=== PATIENT | female | born 1965 | race Caucasian/White ===

== ENCOUNTER 2024-02-28 10:46 | Emergency (ER) | payer OTHER, SELFPAY ==
[2024-02-28 10:46] VITALS: BP 223/122; BP 227/110; PULSE 106; PULSE 108; RESP 18; TEMP 36.6; O2SAT 97; O2SAT 98; BMI 38.7
[2024-02-28 11:10] VITALS: BP 190/100
--- NOTE | 2024-02-28 11:11 | EKG12_ITS ---
Test Reason : Blood Pressure : */* mmHG Vent. Rate : 92 BPM Atrial Rate : 92 BPM P-R Int : 138 ms QRS Dur : 94 ms QT Int : 378 ms P-R-T Axes : 64 13 37 degrees QTcB Int : 467 ms Normal sinus rhythm Inferior infarct , age undetermined Abnormal ECG Confirmed by DALE RUBI, PIPER ([id number]), publication editor SABINO CRANE ([id number]) on 02/29/2024 1:50:14 PM Referred By: Confirmed By: PIPER HUNTER MD
--- NOTE | 2024-02-28 11:11 | EX.ED.DYSGE1 ---
HPI History of Present Illness Chief Complaint: Hypertension Informant: patient and spouse/S.O. Narrative Narrative: 59-year-old female presenting to the emergency room with a chief complaint of hypertension. Patient states over the past 6 months she has occasionally taken her blood pressure. Sometimes the systolic reading is 140s sometimes it is upwards of 200 she notes some intermittent leg swelling that has not been a daily thing. She denies any urinary symptoms chest pain palpitations. She states that she believes that she had COVID early on which caused some lung problems. She does have a past couple years she has gained weight. She states she does not have a primary care doctor. Today she stated that she just did not feel right about her blood pressure being so high so she came to emergency. PFSH PFSH Home Medications ?Medication ?Instructions ?Recorded ?Last Taken ?Type lisinopril 20 mg tablet 20 mg PO DAILY #30 tabs 02/28/24 Unknown Rx Allergy/AdvReac Type Severity Reaction Status Date / Time No Known Allergies Allergy Verified 02/28/24 10:56 Social History Smoking Status: Former smoker ROS ROS ED Constitutional Constitutional ED: Denies chills, fever(s) or weight loss Eyes Eyes: Denies change in vision or diplopia ENT ENT ED: Denies ear pain, rhinorrhea or sore throat Cardiovascular Cardiovascular: Denies chest pain, orthopnea, palpitations or racing heartbeat Respiratory/Chest Respiratory/Chest: Denies cough, dyspnea or orthopnea Gastrointestinal Gastrointestinal: Denies abdominal pain, diarrhea, nausea or vomiting Genitourinary Genitourinary ED: Denies dysuria, hematuria or urinary frequency Musculoskeletal Musculoskeletal: Reports back pain; Denies arthralgias or myalgias Integumentary Denies abscess or rash Neurologic Neurologic: Denies headache(s) or weakness Psychiatric Psychiatric: Denies anxiety, depression, suicidal ideation or suicidal thoughts Endocrine Endocrinology: Denies polydipsia, polyphagia or polyuria Allergic/Immunologic Allergic/Immunologic ED: Denies mouth swelling, tongue swelling or urticaria EXAM Physical Exam Const Vital Signs: 02/28/24 10:46 02/28/24 10:46 02/28/24 11:10 Temperature 98 F Temperature Source Temporal Pulse Rate 108 H 106 H Respiratory Rate 18 18 Respiratory Effort Respiratory Pattern Blood Pressure 227/110 H 223/122 H 190/100 H Blood Pressure Mean 149 155 130 Pulse Ox 97 98 Oxygen Delivery Method Room Air Room Air 02/28/24 11:19 02/28/24 12:02 Temperature Temperature Source Pulse Rate 86 Respiratory Rate Respiratory Effort Normal Respiratory Pattern Normal Blood Pressure 165/106 H Blood Pressure Mean 125 Pulse Ox Oxygen Delivery Method Positive well nourished and well developed General Appearance ED: well developed HEENT Reports normocephalic, head/scalp atraumatic and moist mucous membranes Eyes PERRL and EOMs intact bilaterally Neck no lymphadenopathy, supple and no JVD Resp normal respiratory effort and clear to auscultation bilaterally Cardio regular rate, regular rhythm and no murmurs GI normal to inspection, nondistended, normoactive bowel sounds and non-tender Palpation: soft Back/Spine no CVA tenderness and normal ROM Extremity normal to inspection General Extremety ED: Negative for edema General Extremity: Negative for edema Neuro oriented x3 and CN's II-XII intact bilaterally Sensorium / Orientation: alert Motor Exam: strength 5/5 throughout Psych mental status grossly normal Mood & Affect: Negative for depressed or tearful Skin no rashes or lesions noted and no wounds MDM MDM MDM Narrative Medical decision making narrative: Differential diagnosis includes but not limited to hypertensive emergency hypertensive kidney disease hypothyroidism hypothyroidism Patient's BMP shows a creatinine 0.74. Urinalysis demonstrates 15 protein. Her TSH is elevated at 11.5. The above findings were discussed with the patient. She continues to be hypertensive though not significant. Currently 165/106. I believe the patient has established over the past 6 months that she most likely has a degree of essential hypertension. Her lowest readings per her have been around 140. I believe that she would benefit from primary care evaluation and management. I will write for her to have lisinopril. We talked about angioedema chronic cough. We talked that she will most likely need to have her antihypertensive management adjusted for her. She understands. She was given a list of primary care providers in the area. History & Record Review Discussion w/independent historian: Patient and Significant other Lab Data Attestation: I reviewed the patient's lab results. Labs: Laboratory Results - last 24 hr 02/28/24 02/28/24 11:00 11:20 Sodium 140 Potassium 3.6 Chloride 104 Carbon Dioxide 28.0 Anion Gap 8 BUN 11 Creatinine 0.74 Estim Creat Clear Calc 94.12 Est GFR (MDRD) Af Amer 105 Est GFR (MDRD) Non-Af 87 BUN/Creatinine Ratio 15.0 Glucose 97 Calcium 9.2 TSH 11.500 H Urine Color Yellow Urine Clarity Clear Urine pH 7.0 Ur Specific [place] 1.010 Urine Protein 15 H Urine Glucose (UA) Normal Urine Ketones Negative Urine Occult Blood Negative Urine Nitrite Negative Urine Bilirubin Negative Urine Urobilinogen Normal Ur Leukocyte Esterase Negative Urine RBC 0 SEEN Urine WBC 0 SEEN Ur Squamous Epith Cells 0-5 SEEN Amorphous Sediment 1+ PHOS Urine Bacteria 0 SEEN Urine Mucus 1+ EKG Initial EKG: Attestation: I personally reviewed and interpreted this EKG as follows: Comments: Normal sinus rhythm ventricular rate of 92 bpm Discharge Plan Triage Chief Complaint: Hypertension ED Provider: Sam Johnson Dx/Rx/DC Orders Clinical Impression: Hypertension, Elevated TSH Instructions: Thyroid-Stimulating Hormone, Hypertension Dc, ED Hypothyroidism Prescriptions: New lisinopril 20 mg tablet 20 mg PO DAILY Qty: 30 0RF Primary Care Provider: Care Physician,No Primary Referrals: Jessi Galindo MD [Med Staff - Active Staff] - As Needed (for primary care) Care Physician,No Primary [Primary Care Provider] - Print Language: Panamanian Disposition Disposition: Home, Self Care
[2024-02-28 11:26] LABS: Bacteria 0 SEEN /hpf (None Seen); Red Blood Cells-Urine 0 SEEN /hpf (0-5); White Blood Cells 0 SEEN /hpf (0-5)
[2024-02-28 11:32] LABS: Color, Urine Yellow (Yellow); Glucose, Dipstick Normal (Normal); Ketone-Dipstick Negative (Negative); Leukocyte Esterase-Dipstick Negative /ul (Negative); Nitrite-Dipstick Negative (Negative); Occult Blood-Urine Negative /ul (Negative); Protein-Dipstick 15 mg/dl (Negative); Urine Bilirubin Dipstick Negative (Negative); Urine Clarity Clear (Clear); Urine Urobilinogen Normal (Normal)
[2024-02-28 11:43] LABS: Anion Gap 8 (5-15); BUN 11 mg/dL (7-18); Calcium,Total 9.2 mg/dL (8.5-10.1); Chloride 104 mmol/L (98-107); Creatinine, Serum 0.74 mg/dL (0.55-1.02); EST Glomerular Filtration Rate 87 mL/min (>60); Est Glom Filt Rate - Afr Amer 105 mL/min (>60); Estimated Creatinine Clearance 94.12 ml/min; Glucose 97 mg/dL (74-106); Potassium 3.6 mmol/L (3.5-5.1); Sodium Level 140 mmol/L (136-145)
[2024-02-28 11:50] LABS: Amorphous Sediment 1+ PHOS; Mucous, Urine 1+ /hpf (<or=2+); Squamous Epithelial Cells - UA 0-5 SEEN /hpf (5-10)
[2024-02-28 12:02] VITALS: BP 165/106; PULSE 86
[2024-02-28 12:42] VITALS: BP 154/87; PULSE 83; RESP 24; TEMP 36.7; O2SAT 95
--- NOTE | 2024-02-28 13:26 | CM.ED ---
Social Work Reason for visit: No PCP Patient confirmed that she did not have a PCP, resource list provided with local physicians. Kendy Adams, ELECT[employer]IC [employer]OL [employer]SEMBLER, EDITOR [employer]
== END 2024-02-28 12:45 | disposition home or self-care (01) ==
PROVIDERS: Emergency Provider Emergency Medicine; Visit Provider Emergency Medicine
DX: I10 Essential (primary) hypertension (principal); Z87.891 Personal history of nicotine dependence
CPT/HCPCS: 80048; 81001; 84443; 93005; 99284; A4216

== ENCOUNTER → 2024-04-03 | Outpatient (CLI) | payer OTHER, SELFPAY ==
[2024-04-03 12:14] LABS: Absolute Lymphocyte Count 2.09 X10^3/uL (0.83-4.51); Absolute Neutrophil Count 4.2 X10^3/uL (2.0-7.7); Basophil# 0.07 X10^3/uL; Eosinophil# 0.17 X10^3/uL; Eosinophils% 2.4 % (0-5); Hematocrit 41.8 % (37-47); Hemoglobin 13.3 g/dL (12.0-15.0); Lymphocyte # 2.09 X10^3/ul (0.83-4.51); Lymphocyte % 29.8 % (19-41); Mean Corp Hgb Conc 31.8 g/dL (32-36); Monocyte# 0.42 X10^3/uL; NRBC Flagged by Analyzer 0 % (0-5); Neutrophil # 4.24 X10^3/uL (2.7-7.7); Neutrophil % 60.5 % (47-70); Platelet Count 399 K/mm3 (150-450); RBC Distribution Width CV 13.8 % (11.6-14.6); RBC Distribution Width SD 44.9 fl (35.1-43.9); Red Blood Count 4.75 M/mm3 (4.2-5.4)
[2024-04-03 16:12] LABS: Cholesterol 209 mg/dL (200); High Density Lipoprotein 45 mg/dL; T4 Free Direct 0.88 ng/dL (0.76-1.46); Triglycerides 123 mg/dL; Very Low Density Lipoprotein 25 mg/dL (5-40)
[2024-04-07 20:07] LABS: T3 Reverse 16.6 ng/dL (9.2-24.1)
== END | disposition home or self-care (01) ==
LOC: BIMLAB 10:49
PROVIDERS: PCP Internal Medicine; Referring Provider Physician Assistant; Visit Provider Physician Assistant
DX: Z00.00 Encounter for general adult medical examination without abnormal findings (principal)
CPT/HCPCS: 36415; 80061; 84439; 84443; 84482; 85025

== ENCOUNTER 2024-07-06 19:46 | Emergency (ER) | payer OTHER, SELFPAY ==
[2024-07-06 19:47] VITALS: BP 152/85; PULSE 85; RESP 24; TEMP 35.5; O2SAT 100
--- NOTE | 2024-07-06 20:40 | EKG12_ITS ---
Test Reason : CP Blood Pressure : */* mmHG Vent. Rate : 89 BPM Atrial Rate : 89 BPM P-R Int : 148 ms QRS Dur : 96 ms QT Int : 400 ms P-R-T Axes : 72 19 44 degrees QTcB Int : 486 ms Normal sinus rhythm Prolonged QT Abnormal ECG Confirmed by PIPER HUNTER MD ([id number]), newspaper editor ADELINE TORRES ([id number]) on 07/07/2024 8:24:39 AM Referred By: ER PHYS Confirmed By: PIPER HUNTER MD
--- NOTE | 2024-07-06 20:40 | RAD_ITS ---
PROCEDURE: CHEST 1 VIEW (PORTABLE) 07/06/2024 REASON FOR EXAM: 59-year-old female, heartburn after eating. TECHNIQUE: Frontal view of the chest. COMPARISON: None. FINDINGS: Hardware: None. Heart: The heart size is normal. Lungs: No focal consolidation, pleural effusion or pneumothorax. Bones: The bones are unremarkable. RAD/Chest 1 View (Portable) IMPRESSION: Negative Chest. Reading Location: [id number]
[2024-07-06 20:41] VITALS: O2SAT 97
[2024-07-06 20:47] VITALS: BP 117/68; PULSE 101; RESP 24; O2SAT 98
[2024-07-06 20:49] LABS: Absolute Lymphocyte Count 3.13 X10^3/uL (0.83-4.51); Absolute Neutrophil Count 5.3 X10^3/uL (2.0-7.7); Basophil# 0.06 X10^3/uL; Basophil% 0.7 % (0-1); Eosinophil# 0.15 X10^3/uL; Eosinophils% 1.7 % (0-5); Hematocrit 40.1 % (37-47); Hemoglobin 13.3 g/dL (12.0-15.0); Lymphocyte # 3.13 X10^3/ul (0.83-4.51); Lymphocyte % 34.8 % (19-41); Mean Corp Hgb Conc 33.2 g/dL (32-36); Mean Corpuscular Hgb 29.4 pg (27.0-32.0); Mean Corpuscular Volume 88.5 fL (81-99); Mean Platelet Vol. 9.8 fl (6.2-12.0); Monocyte# 0.38 X10^3/uL; Monocyte% 4.2 % (0-10); NRBC Flagged by Analyzer 0 % (0-5); Neutrophil # 5.25 X10^3/uL (2.7-7.7); Neutrophil % 58.3 % (47-70); Platelet Count 407 K/mm3 (150-450); RBC Distribution Width CV 13.3 % (11.6-14.6); RBC Distribution Width SD 43.1 fl (35.1-43.9); Red Blood Count 4.53 M/mm3 (4.2-5.4)
--- NOTE | 2024-07-06 20:51 | EDS_ITS ---
HPI HPI - GI History of Present Illness Chief Complaint: Chest Pain Detail of Chief Complaint: Epigastric abdominal pain after eating at [employer]. Resolved. Informant: patient Abdominal Pain/Flank Pain Onset: Today and Hours Context: Gradual Onset Timing: - (Occurred shortly after dinner. Now resolved. Lasted about an hour.) Quality: Dull Location: Epigastric Current Severity: Gone Maximum Severity: Moderate Worsened by: Nothing Relieved by: Nothing Nausea/Vomiting/Emesis GI Symptom: Positive for Nausea Diarrhea/Melena/Hematochezia GI Symptom: Negative for Diarrhea, Melena or Hematochezia Associated Symptoms Associated Symptoms: Negative for Dysuria, Frequency, Hematuria or Urgency Narrative Narrative: 59-year-old female history of hypertension. No prior abdominal surgeries. States tonight they went out to eat at [employer]. About 630 after she ate on the drive home she developed epigastric abdominal pain. Lasted about an hour resolved here in triage. Said she got clammy when it occurred. And nauseated. Did not throw up. She has no history of cardiac disease. No history of gallbladder disease or ulcer. Denies any recent illness. She has had symptoms like this before not as severe. Currently says she feels good. Prior similar symptoms: Yes Recent Illness/Hospitalization: No PFSH PFSH Home Medications ?Medication ?Instructions ?Recorded ?Last Taken ?Type prasterone (dhea) 25 mg tablet 25 mg PO QDAY 03/15/24 Unknown History (DHEA) progesterone micronized 100 mg 100 mg PO QAM 03/15/24 Unknown History capsule semaglutide 1 mg/dose (2 mg/1.5 1 mg subcut QWEEK 08/03 Unknown History mL) subcutaneous pen injector vehicle crm base no.241 (bulk) applic transdermal 08/03 Unknown History (HRT Heavy Cream Base transdermal) lisinopril 20 mg tablet 20 mg PO DAILY #90 tabs 09/02 Unknown Rx Allergy/AdvReac Type Severity Reaction Status Date / Time No Known Allergies Allergy Verified 07/06/24 19:50 Family History Father Sudden cardiac Mother Age: 77 COPD (chronic obstructive pulmonary disease) Grandmother Osteoporosis Grandfather CVA (cerebral vascular accident) Surgical History History of tonsillectomy History of breast biopsy Social History adopted: No household members: spouse and children number of children: 2 current occupational status: employed current occupation: self emplopyed current occupational exposures/hazards: Yes pets and animals: Yes history of recent travel: No sexually active: Yes Smoking Status: Former smoker quit date: 09/11/03 Tobacco: How many years used: 20 how long ago did patient quit smokin alcohol intake: current alcohol intake frequency: holidays/special occasions only Alcohol type: beer, wine and hard liquor substance use type: does not use well-balanced diet: about half the time caffeine: Yes Type: coffee and other eating out: 1-3 times/week what type of physical activity do you participate in: none seatbelt use: always do you feel safe at home: Yes ROS ROS ED ROS Narrative Epigastric abdominal pain. Would not typically not postprandial symptoms. No exertional chest pain or exertional dyspnea. Constitutional Constitutional ED: Denies chills or fever(s) ENT ENT ED: Denies ear pain, rhinorrhea or sore throat Cardiovascular Cardiovascular: Denies chest pain, palpitations or racing heartbeat Respiratory/Chest Respiratory/Chest: Denies cough, dyspnea or dyspnea on exertion Gastrointestinal Gastrointestinal: Reports abdominal pain and nausea; Denies constipation, diarrhea, melena or vomiting Genitourinary Genitourinary ED: Denies dysuria or hematuria Musculoskeletal Musculoskeletal: Denies arthralgias or back pain Integumentary Denies abscess Neurologic Neurologic: Denies headache(s) Psychiatric Psychiatric: Denies anxiety Endocrine Endocrinology: Denies polydipsia Hematologic/Lymphatic Hematologic/Lymphatic: Denies easy bleeding Allergic/Immunologic Allergic/Immunologic ED: Denies mouth swelling, tongue swelling or urticaria EXAM Physical Exam Narrative Exam Narrative: 59-year-old female currently symptom-free. Vital signs are stable afebrile. Pulse ox 100% on room air no signs of hypoxia. H EENT exam pupils round reactive light. Moist mucous membranes. Neck nontender no lymphadenopathy. Lungs clear to auscultation bilaterally. Heart regular rhythm rate about 80 no murmur. Chest wall no reproducible pain over the anterior chest or ribs or sternum. Abdomen is soft, nontender, nondistended, normal bowel sounds without peritoneal signs. No right upper or right lower quadrant tenderness. No epigastric tenderness. No pulsatile mass. No distention. Abdomen is completely nontender. Moving all 4 extremities. Normal strength. Nontender no edema. Calves nontender. Neurologically she is awake alert no focal motor deficits. Back nontender. Benign exam. Const Vital Signs: 07/06/24 19:47 07/06/24 20:03 07/06/24 20:41 Temperature 95.9 F L Temperature Source Oral Pulse Rate 85 Respiratory Rate 24 H Respiratory Effort Normal Blood Pressure 152/85 H Blood Pressure Mean 107 Pulse Ox 100 97 Oxygen Delivery Method Room Air Room Air 07/06/24 20:47 07/06/24 21:00 07/06/24 22:00 Temperature Temperature Source Pulse Rate 101 H 99 88 Respiratory Rate 24 H 19 H 15 Respiratory Effort Blood Pressure 117/68 103/64 106/68 Blood Pressure Mean 84 77 80 Pulse Ox 98 93 97 Oxygen Delivery Method Room Air Room Air 07/06/24 23:00 Temperature Temperature Source Pulse Rate 80 Respiratory Rate 17 Respiratory Effort Blood Pressure 100/70 Blood Pressure Mean 80 Pulse Ox 96 Oxygen Delivery Method Room Air Positive well nourished and well developed; Negative for cachectic, contractures or unkempt General Appearance ED: well developed; Negative for unkempt, cachectic, contractures or pallor Nutritional Appearance: Negative for cachectic HEENT Reports moist mucous membranes normocephalic and atraumatic; Negative for trauma or tenderness Eyes PERRL and EOMs intact bilaterally General Eye ED: Negative for pale conjunctiva or scleral icterus Neck no lymphadenopathy, supple and no JVD General: Negative for tenderness Lymph Lymphatic: Negative for other Resp normal respiratory effort and clear to auscultation bilaterally Cardio regular rate, regular rhythm, S1 normal heart sound, S2 normal heart sound and no murmurs GI non-tender, non-distended and no masses Inspection: Negative for abdominal distention Auscultation: normoactive bowel sounds Palpation: soft; Negative for tender, guarding, hernia, mass, pulsatile mass or rebound tenderness present Back/Spine no CVA tenderness General Back: Negative for CVA tenderness Cervical Spine: Negative for cervical spine tenderness Thoracic Spine / Upper Back: Negative for thoracic spinal tenderness Lumbar Spine / Lower Back: Negative for lumbar spinal tenderness Coccyx: Negative for other Extremity full ROM General Extremety ED: Negative for edema, tenderness or other findings General Extremity: Negative for edema or other findings Neuro CN's II-XII intact bilaterally and moves all extremities Sensorium / Orientation: alert, oriented to person, oriented to place and oriented to time; Negative for orientation impaired, confused, lethargic or stuporous Motor Exam: strength 5/5 throughout Psych mental status grossly normal and thought process normal Appearance: Negative for unkempt Attitude: No agitated Mood & Affect: Negative for anxious or tearful Skin no wounds General Skin Exam: Negative for jaundice or pallor Lesions: no lesions Rashes: no rashes Trauma: Negative for abrasion Nails: Negative for discolored MDM MDM MDM Narrative Medical decision making narrative: 59-year-old female with epigastric pain after eating the night. Differential would include gastritis, gallbladder disease pancreatitis atypical cardiac disease versus other etiologies. She will go through a cardiac workup including a lipase and liver panel. Currently she is symptom-free pain-free. Repeat exam around 11 PM. Patient is doing well. We went over her test results. We are waiting on the 2-hour troponin. My clinical suspicion is that this is most likely not cardiac and may be GI. Her abdomen is benign she is not having any pain at this time. There is no reproducible epigastric or right upper quadrant pain. No pulsatile mass. Once his second troponin comes back as well as its normal they are comfortable being discharged home with outpatient follow-up possible outpatient ultrasound to her primary care physician's office. Patient doing well repeat exam 11:49 PM. However all of her test results. She and her are Pardeep being discharged home. Epigastric pain uncertain etiology. Follow-up primary care physician. If she has recurrent symptoms she may need a ultrasound of her gallbladder or CAT scan of her abdomen. She been pain-free the entire time emergency department her repeat abdominal exam is benign and nontender. History & Record Review Discussion w/independent historian: Patient Lab Data Attestation: I reviewed the patient's lab results. Lab results narrative: CBC normal. White count 9. H&H 13 and 40. Platelets 407. Chemistry showed gap 14. Normal BUN of 16 creatinine 0.63. Glucose 144. Liver enzymes are normal. Lipase is 45. Initial troponin is less than 6. Second troponin is 7. Chest x-ray is normal. Labs: Laboratory Results - last 24 hr 07/06/24 07/06/24 20:00 22:54 WBC 9.0 RBC 4.53 Hgb 13.3 Hct 40.1 MCV 88.5 MCH 29.4 MCHC 33.2 RDW Std Deviation 43.1 RDW Coeff of [place] 13.3 Plt Count 407 MPV 9.8 Immature Gran % (Auto) 0.300 Neut % (Auto) 58.3 Lymph % (Auto) 34.8 Creek % (Auto) 4.2 Eos % (Auto) 1.7 Baso % (Auto) 0.7 Absolute Neuts (auto) 5.3 Absolute Lymphs (auto) 3.13 Nucleated RBC % 0 Sodium 140 Potassium 3.7 Chloride 103 Carbon Dioxide 22.7 Anion Gap 14 BUN 16 Creatinine 0.63 L Est GFR (MDRD) Non-Af 103 BUN/Creatinine Ratio 25.1 H Glucose 144 H Calcium 7.7 Total Bilirubin 0.28 Direct Bilirubin 0.13 AST 25 ALT 32 Alkaline Phosphatase 78 Troponin T High Sens < 6 Troponin T Hi Sens 2 Hr 7 Total Protein 7.2 Albumin 4.3 Globulin 2.9 Lipase 45 Radiography Chest X-Ray - ED: 1 View, Read by ED Physician, Read by Radiologist, Normal, Heart, Lungs, Mediastinum, Bony Structures, No Acute Disease and Chronic Changes Diagnostic Testing: Clinical Impression(s) from Imaging Studies Chest X-Ray 07/06/24 20:40 IMPRESSION: Negative Chest. Reading Location: [facility] Chest x-ray, portable, single view interpreted by myself and radiologist shows no acute abnormality. Normal cardiac silhouette. No mediastinum. Normal lung jones. Chronic changes. No acute process. Rhythm Strip Rhythm Strip: Sinus Rhythm Rate: 89 Ectopy: None EKG Initial EKG: Attestation: I personally reviewed and interpreted this EKG as follows: Interpretation: Sinus Rhythm and No Acute Injury Pattern Comments: Normal sinus rhythm rate 89 no acute signs of DC or ischemia. Prolonged QTc of 400. Discharge Plan Triage Chief Complaint: Chest Pain ED Provider: [place] Andrew Dx/Rx/DC Orders Clinical Impression: Abdominal pain Instructions: Abdominal Pain Prescriptions: No Action HRT Heavy Cream Base Cream transdermal prasterone (dhea) [DHEA] 25 mg tablet 25 mg PO QDAY progesterone micronized 100 mg capsule 100 mg PO QAM Rx Instructions: off 7 days; repeat cycle semaglutide 1 mg/dose (2 mg/1.5 mL) pen injector 1 mg subcut QWEEK lisinopril 20 mg tablet 20 mg PO DAILY Qty: 90 1RF Primary Care Provider: Jessi Galindo Referrals: Jessi Galindo MD [Primary Care Provider] - 3-5 Days Activity Restrictions/Additional Instructions: No specific cause for your abdominal pain. Clinically I do not think this is cardiac etiology. This could be from spasm in your esophagus, gastritis or gallbladder disease. If you have recurrent symptoms he should get an ultrasound of your gallbladder. All your labs tonight were normal including your EKG and chest x-ray. Follow-up with your doctor for further evaluation. Print Language: Romansh Disposition Disposition: Home, Self Care
[2024-07-06 21:00] VITALS: BP 103/64; PULSE 99; RESP 19; O2SAT 93
[2024-07-06 21:18] LABS: Troponin T High Sensitivity < 6 ng/L (<=14)
[2024-07-06 21:36] LABS: Anion Gap 14 (5-15); BUN 16 mg/dL (4-19); BUN/Creat Ratio 25.1 RATIO (10-20); Calcium,Total 7.7 mg/dL (7.6-11.0); Carbon Dioxide 22.7 mmol/L (21.0-32.0); Chloride 103 mmol/L (98-108); Creatinine, Serum 0.63 mg/dL (0.70-1.20); EST Glomerular Filtration Rate 103 (>60); Glucose 144 mg/dL (70-99); Potassium 3.7 mmol/L (3.3-5.1); Sodium Level 140 mmol/L (133-145)
[2024-07-06 21:57] LABS: AST(SGOT) 25 U/L (<=31); Alanine Aminotransfer ALT/SGPT 32 U/L (<=34); Albumin, Serum 4.3 g/dL (3.5-5.0); Alkaline Phosphatase 78 U/L (35-104); Bilirubin, Direct 0.13 mg/dL (0.00-0.30); Globulin 2.9 g/dL (2.2-4.2); Lipase 45 U/L (13-75); Protein, Total 7.2 g/dL (5.9-8.4); Total Bilirubin 0.28 mg/dL (0.00-1.30)
[2024-07-06 22:00] VITALS: BP 106/68; PULSE 88; RESP 15; O2SAT 97
[2024-07-06 23:00] VITALS: BP 100/70; PULSE 80; RESP 17; O2SAT 96
[2024-07-06 23:43] LABS: Troponin T High Sens 2 HR 7 ng/L (<=14)
[2024-07-07 00:06] VITALS: BP 129/70; PULSE 79; RESP 18; TEMP 36.7; O2SAT 100
== END 2024-07-07 00:07 | disposition home or self-care (01) ==
PROVIDERS: Emergency Provider Emergency Medicine; PCP Internal Medicine; Visit Provider Emergency Medicine
DX: R10.9 Unspecified abdominal pain (principal); Z87.891 Personal history of nicotine dependence
CPT/HCPCS: 71045; 80048; 80076; 83690; 84484; 85025; 93005; 99284; A4216

== ENCOUNTER → 2024-07-14 | Outpatient (CLI) | payer OTHER, SELFPAY ==
[2024-07-14 12:19] LABS: Erythrocyte Sedimentation Rate 19 mm/hr (0-30)
[2024-07-14 13:38] LABS: Cholesterol 214 mg/dL (<=200); High Density Lipoprotein 47 mg/dL; Low Density Lipoprotein Calc. 142 mg/dL; Triglycerides 125 mg/dL; Very Low Density Lipoprotein 25 mg/dL (5-40); cholesterol:hdl ratio screen 4.59
[2024-07-14 13:41] LABS: Rheumatoid Factor < 10.0 IU/mL (<15)
[2024-07-17 11:08] LABS: ANTINUCLEAR ANTIBODIES DIRECT Negative (Negative)
[2024-07-18 23:07] LABS: CCP IgG Antibodies 6 units (0-19); T3 Reverse 16.8 ng/dL (9.2-24.1); Thyroid Peroxidase AB 179 IU/mL (0-34)
== END | disposition home or self-care (01) ==
LOC: BIMLAB 09:03
PROVIDERS: PCP Internal Medicine; Referring Provider Internal Medicine; Visit Provider Internal Medicine
DX: R79.89 Other specified abnormal findings of blood chemistry (principal); M19.90 Unspecified osteoarthritis, unspecified site; E78.5 Hyperlipidemia, unspecified
CPT/HCPCS: 36415; 80061; 84439; 84443; 84482; 85652; 86038; 86140; 86200; 86376; 86431